=== PATIENT | male | born 1945 | race Hispanic/Latino ===

== ENCOUNTER 2016-07-10 13:10 | Inpatient (IN) | payer MEDICARE, OTHER ==
[2016-07-10] MEDS ORDERED: MILK OF MAGNESIA PO PRN (14:20)
[2016-07-10] MEDS ORDERED: DILAUDID IV PRN (14:20)
[2016-07-10] MEDS ORDERED: ZOFRAN IV PRN (14:20)
[2016-07-10] MEDS ORDERED: TYLENOL PO PRN (14:20)
[2016-07-10] MEDS ORDERED: DULCOLAX PR PRN (14:20)
[2016-07-10] MEDS ORDERED: CARDIZEM/D5W 100MG/100ML 100 MG/100 ML BAG IV SCH (23:00)
[2016-07-10] MEDS: COREG PO SCH (23:03)
[2016-07-10] MEDS: AMBIEN PO PRN (23:04)
[2016-07-10] MEDS: BROVANA NEBU IH SCH (23:11)
[2016-07-11] MEDS ORDERED: SODIUM CHLORIDE FLUSH SYRINGE 10 ML IV PRN (00:02)
--- NOTE | 2016-07-11 00:02 | Event Note ---
Date: 07/10/16 See H/p in reports Transfer from rehab unit SVT - new onset
[2016-07-11] MEDS: PROVENTIL IH PRN (04:39)
[2016-07-11 04:42] LABS: Basophils % (Auto) 0.4 % (0.0-1.8); Eosinophils % (Auto) 0.9 % (0.0-4.3); Hematocrit 31.6 % (35.5-45.6); Hemoglobin 9.6 gm/dl (11.8-15.2); Mean Corpuscular HGB Conc 30 % (32-34); Mean Corpuscular Volume 78 fl (84-94); Platelet Count 288 K/mm3 (140-440); Red Blood Count 4.05 M/mm3 (3.65-5.03)
[2016-07-11 04:43] LABS: Mean Corpuscular Hemoglobin 24 pg (28-32); Red Cell Distribution Width 21.8 % (13.2-15.2)
[2016-07-11 04:55] LABS: Alanine Aminotransferase 10 units/L (7-56); Albumin 2.6 g/dL (3.9-5); Albumin/Globulin Ratio 0.9 %; Alkaline Phosphatase 60 units/L (35-129); Anion Gap 14 mmol/L; BUN/Creatinine Ratio 15.55; Blood Urea Nitrogen 14 mg/dL (9-20); Calcium 8.7 mg/dL (8.4-10.2); Carbon Dioxide 29 mmol/L (22-30); Chloride 106.4 mmol/L (98-107); Glucose 82 mg/dL (75-100); Potassium 4.1 mmol/L (3.6-5.0); Sodium 145 mmol/L (137-145); Total Protein 5.4 g/dL (6.3-8.2)
--- NOTE | 2016-07-11 08:01 | Admit Criteria Form ---
<LINA VILLANUEVA - Last Filed: 07/11/16 08:01> Admission Criteria Documentation: TELEMETRY CARE Telemetry Admission Guidelines (Place 'X' for any and all applicable criteria): Admission to telemetry [A] may be indicated for ANY ONE of the following(1)(2)(3 )(4)(5): [X ]I. Cardiac disease, including ANY ONE of the following (9)(10)(11)(12)( 13): [ ]a) Postacute PA [ ]b) Low-risk patients with ST-segment elevation PA who have undergone successful percutaneous coronary intervention [ ]c) Unstable angina [ ]d) Suspected PA (until it is ruled out) [ ]e) Post cardiac surgery (first 48 to 72 hours unless complications occur) [X ]f) Acute arrhythmias (including significant tachycardia or bradycardia) [B] [ ]g) Firing of an implantable cardioverter defibrillator [C] [ ]h) Suspected pacemaker or implantable cardioverter defibrillator malfunction (10) [ ]i) New administration or adjustment of an antiarrhythmic drug [D ] [ ]j) Child admitted for acute congestive heart failure [ ]j) Long QT syndrome [ ]k) Advanced heart block (eg, second-degree Mobitz type II, third- degree heart block) [ ]l) Acute myocarditis or pericarditis [ ]m) Short-term (ambulatory or inpatient) monitoring after a cardiac procedure as indicated by ANY ONE of the following [E]: [ ]i) Electrophysiologic studies [ ]ii) Percutaneous coronary intervention with stent placement [ ]iii) Pacemaker placement with cardiac conduction defect [ ]iv) Implantable cardiac defibrillator placement [ ]II. Drug overdose or poisoning with substance that causes arrhythmias or QT prolongation (eg, phenothiazines, sympathomimetic agents, cyclic antidepressants, digitalis, antiarrhythmic drugs)(15) [ ]III. Short-term (ambulatory or inpatient) monitoring after therapeutic or diagnostic procedure requiring conscious sedation or anesthesia (eg, endoscopy, elective cardioversion) [ ]IV. Acute cerebrovascular even[F](18) [ ]V. Massive blood transfusion (eg, at least 10 units of packed red blood cells in 24 hours) [ ]. Variceal bleeding after endoscopy, sclerotherapy, or IV vasopressin [ ]VII. Uncorrected electrolyte abnormalities associated with an increased risk of dangerous arrhythmia [G]; examples include [ ]a) Hyperkalemia with attributable ECG changes [ ]b) Potassium greater than 6.5 mmol/L (mEq/L) in a patient without history of chronic renal disease [ ]c) Prolonged QT attributed to hypokalemia, hypomagnesemia, or hypocalcemia [ ]VIII.Unexplained syncope or other neurologic event suspected of being due to arrhythmia due to a finding that increases risk; examples include(19)(20)(21): [ ]a) High-risk ECG findings (eg, bifascicular block, bradycardia, abnormal QT interval, ventricular pre- excitation) [ ]b) History of previous syncope due to arrhythmia [ ]c) Abnormal ventricular function (eg, reduced ejection fraction ) [ ]d) Exertional or supine syncope [ ]e) Concerning syncope characteristics (eg, sudden loss of consciousness without prodrome) [ ]f) Family history of sudden [ ]g) Use of arrhythmogenic medication [ ]h) Suspected cardiac ischemia [ ]i) Known channelopathy (eg, long QT syndrome, Brugada syndrome, or catecholaminergic paroxysmal ventricular tachycardia) [ ]j) Known structural heart disease (eg, hypertrophic cardiomyopathy , severe valvular disease) [ ]k) Palpitations preceding syncope The original [employer] content created by [employer] has been revised. The portions of the content which have been revised are identified through the use of italic text or in bold, and [employer] has neither reviewed nor approved the modified material. All other unmodified content is copyright [employer]. Please see references footnoted in the original [employer] edition 2016 <CYNTHIA MONSON - Last Filed: 07/21/16 06:40> Admission Criteria Met: Yes
--- NOTE | 2016-07-11 08:45 | Progress Note ---
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 Case management Disposition; possible discharge in 1-2 days if stable Plan of care discussed with the patient, his nurse as well as the case management History Interval history: Patient seen and evaluated medical records reviewed No new events reported by the nursing staff Patient denies chest pain or shortness of breath Alert awake oriented 3 not in acute distress Vital signs reviewed Hospitalist Physical - Constitutional Vitals: Temp Pulse Resp BP Pulse Ox 98.8 F 56 L 20 117/71 96 07/11/16 05:52 07/11/16 05:52 07/11/16 05:52 07/11/16 05:52 07/11/16 05:52 General appearance: Present: no acute distress, well-nourished - EENT Eyes: Present: PERRL, EOM intact - Neck Neck: Present: supple, normal ROM - Respiratory Respiratory effort: normal Respiratory: bilateral: diminished, negative: rales, rhonchi, wheezing - Cardiovascular Rhythm: regular Heart Sounds: Present: S1 & S2 - Extremities Extremities: no ischemia, pulses intact, pulses symmetrical - Abdominal General gastrointestinal: soft, non-tender, non-distended, normal bowel sounds - Integumentary Integumentary: Present: clear, warm - Psychiatric Psychiatric: appropriate mood/affect, cooperative - Neurologic Neurologic: CNII-XII intact, moves all extremities Results - Labs CBC & Chem 7: 07/11/16 04:00 07/11/16 04:00 Labs: Laboratory Last Values WBC 12.0 K/mm3 (4.5-11.0) H 07/11/16 04:00 RBC 4.05 M/mm3 (3.65-5.03) 07/11/16 04:00 Hgb 9.6 gm/dl (11.8-15.2) L 07/11/16 04:00 Hct 31.6 % (35.5-45.6) L 07/11/16 04:00 MCV 78 fl (84-94) L D 07/11/16 04:00 MCH 24 pg (28-32) L 07/11/16 04:00 MCHC 30 % (32-34) L 07/11/16 04:00 RDW 21.8 % (13.2-15.2) H 07/11/16 04:00 Plt Count 288 K/mm3 (140-440) 07/11/16 04:00 Lymph % (Auto) 5.5 % (13.4-35.0) L 07/11/16 04:00 [place] % (Auto) 8.2 % (0.0-7.3) H 07/11/16 04:00 Eos % (Auto) 0.9 % (0.0-4.3) 07/11/16 04:00 Baso % (Auto) 0.4 % (0.0-1.8) 07/11/16 04:00 Lymph # 0.7 K/mm3 (1.2-5.4) L 07/11/16 04:00 [place] # 1.0 K/mm3 (0.0-0.8) H 07/11/16 04:00 Eos # 0.1 K/mm3 (0.0-0.4) 07/11/16 04:00 Baso # 0.0 K/mm3 (0.0-0.1) 07/11/16 04:00 Seg Neutrophils % 85.0 % (40.0-70.0) H 07/11/16 04:00 Seg Neutrophils # 10.2 K/mm3 (1.8-7.7) H 07/11/16 04:00 Sodium 145 mmol/L (137-145) 07/11/16 04:00 Potassium 4.1 mmol/L (3.6-5.0) 07/11/16 04:00 Chloride 106.4 mmol/L (98-107) 07/11/16 04:00 Carbon Dioxide 29 mmol/L (22-30) 07/11/16 04:00 Anion Gap 14 mmol/L 07/11/16 04:00 BUN 14 mg/dL (9-20) 07/11/16 04:00 Creatinine 0.9 mg/dL (0.8-1.5) 07/11/16 04:00 Estimated GFR > 60 ml/min 07/11/16 04:00 BUN/Creatinine Ratio 15.55 % 07/11/16 04:00 Glucose 82 mg/dL (75-100) 07/11/16 04:00 Hemoglobin A1c 5.9 % (4-6) 07/10/16 Unknown Calcium 8.7 mg/dL (8.4-10.2) 07/11/16 04:00 Total Bilirubin 0.80 mg/dL (0.1-1.2) 07/11/16 04:00 AST 11 units/L (5-40) 07/11/16 04:00 ALT 10 units/L (7-56) 07/11/16 04:00 Alkaline Phosphatase 60 units/L (35-129) 07/11/16 04:00 Total Creatine Kinase 12 units/L (55-170) L 07/11/16 06:47 CK-MB (CK-2) 1.0 ng/mL (0.0-4.0) 07/11/16 06:47 CK-MB (CK-2) Rel Index 8.3 (0-4) H 07/11/16 06:47 Troponin T 0.038 ng/mL (0.00-0.029) H 07/11/16 04:00 Total Protein 5.4 g/dL (6.3-8.2) L 07/11/16 04:00 Albumin 2.6 g/dL (3.9-5) L 07/11/16 04:00 Albumin/Globulin Ratio 0.9 % 07/11/16 04:00 Triglycerides 75 mg/dL (2-149) 07/11/16 04:00 Cholesterol 90 mg/dL (50-199) 07/11/16 04:00 LDL Cholesterol Direct 25 mg/dL (50-130) L 07/11/16 04:00 HDL Cholesterol 50 mg/dL (40-59) 07/11/16 04:00 Cholesterol/HDL Ratio 1.80 % 07/11/16 04:00
[2016-07-11] MEDS: BROVANA NEBU IH SCH ×2 (08:56→22:02)
[2016-07-11] MEDS: DUONEB 0.5 MG-3 MG/3 ML SOLN IH SCH ×3 (09:17→20:00)
--- NOTE | 2016-07-11 09:47 | History and Physical Report ---
CHIEF COMPLAINT: Palpitations since a.m. HISTORY OF PRESENT ILLNESS: A 71-year-old male with multiple medical problems, transferred from acute rehab for heart rate of 150-160 consistent with supraventricular tachycardia. History before admitted to telemetry, the patient had multiple problems including multiple sclerosis, upper GI bleed and pulmonary embolism. GI bleed was secondary to multiple distal esophageal dilated strictures. The patient was initially admitted for respiratory failure secondary to submassive pulmonary embolism in May 2016. The patient was stabilized and had an IVC filter placement on June 2016, treated for chronic obstructive pulmonary disease exacerbation. The patient was admitted to rehab for severe debility. The patient has been improving as far as debility was concerned, but today because of the palpitations and fast heart rate of 150-170, the patient is being transferred to telemetry for further care. PAST MEDICAL HISTORY: Significant for pulmonary embolism, right leg deep venous thrombosis, chronic obstructive pulmonary disease, dementia, hypertension, hyperlipidemia, asthma and anticoagulation. CURRENT MEDICATIONS: On the chart. PAST SURGICAL HISTORY: IVC filter placement. FAMILY HISTORY: Significant for hypertension. SOCIAL HISTORY: Used to smoke. REVIEW OF SYSTEMS: Significant for palpitations and slight shortness of breath. Otherwise, review of systems is essentially negative. All 14-point review of systems was done. PHYSICAL EXAMINATION: GENERAL: Elderly male, cooperative during examination. VITAL SIGNS: Vital signs were significant for blood pressure of 140/80, heart rate of 150-160, temperature 98.9, pulse is 150, respirations is 19. HEENT: Unremarkable. Pupils equal and reactive. NECK: Supple, no lymphadenopathy, no thyromegaly. LUNGS: Clear to auscultation and percussion. Good air entry. CARDIOVASCULAR: S1, S2 heard. No gallop, no murmur, no rub. Apical impulse in left fifth intercostal space and midclavicular line. ABDOMEN: Soft and benign. No hepatosplenomegaly. No guarding, no rigidity. Hernial orifices are normal. EXTREMITIES: Good pedal pulses, no pedal edema. CENTRAL NERVOUS SYSTEM: Alert and oriented x 4. Nonfocal exam. SKIN: Normal. LABORATORY DATA: White count is 15,300, H and H is 9.6 and 32.6, platelet count is 7000, INR is 2.05. Electrolytes are normal. EKG, supraventricular tachycardia, heart rate of 140-160 per minute. ASSESSMENT AND PLAN: 1. Supraventricular tachycardia. The patient started on Cardizem drip at 5 mg per hour. Also, all medications initiated. The patient also started on Coreg 3.125 b.i.d. The patient may be switched to diltiazem p.o. once heart rate is stabilized. 2. Chronic obstructive pulmonary disease. Continue DuoNebs. 3. Hyperlipidemia. Continue atorvastatin 40 mg p.o. daily. 4. Depression. Continue citalopram 10 mg p.o. daily. 5. Dementia, mild. Continue Aricept 10 mg daily and Namenda XR 28 mg once a day. 6. Anticoagulation, INR therapeutic range, continue Coumadin 6 mg p.o. daily. The patient is being given Coumadin for his pulmonary embolism. The patient has IVC filter. 7. Hypertension. Continue lisinopril 5 mg daily and ____ Coreg 3.125 b.i.d. 8. Deep venous thrombosis prophylaxis. The patient already anticoagulated, no Lovenox at this point. A Cardiology consult with Dr. Barcenas requested. JOB# [id number] VSM/NTS
--- NOTE | 2016-07-11 10:20 | Consultation ---
History of Present Illness Consult date: 07/11/16 Consult reason: other (Atrial flutter) History of present illness: Patient has no complaints. Continues on IV diltiazem. Sinus tachycardia with PVCs on telemetry. Medications and Allergies Allergies Allergy/AdvReac Type Severity Reaction Status Date / Time iodine Allergy Unknown Unknown Verified 06/30/16 23:31 clarithromycin [From Biaxin] Allergy Unknown Verified 06/30/16 23:31 levofloxacin Allergy Unknown Verified 06/30/16 23:31 Home Medications Medication Instructions Recorded Confirmed Last Taken Type ALBUTEROL NEB's [Proventil 0.083% 2.5 mg IH Q4HRT PRN #1 nebu 07/10/16 07/10/16 Unknown Rx NEBS] Arformoterol Nebu [Brovana Nebu] 15 mcg IH Q12HRT ml 07/10/16 07/10/16 Unknown Rx AtorvaSTATin [Lipitor] 40 mg PO QHS tablet 07/10/16 07/10/16 Unknown Rx Carvedilol [Coreg] 3.125 mg PO BID tablet 07/10/16 07/10/16 Unknown Rx Citalopram [celeXA] 10 mg PO QDAY tablet 07/10/16 07/10/16 Unknown Rx Donepezil [Aricept] 10 mg PO QHS tablet 07/10/16 07/10/16 Unknown Rx Ipratropium/Albuterol Sulfate 1 ampul IH TIDRT ampul.neb 07/10/16 07/10/16 Unknown Rx [Duoneb 0.5 mg-3 mg/3 ml Soln] Lisinopril [Zestril TAB] 2.5 mg PO QDAY tablet 07/10/16 07/10/16 Unknown Rx Memantine Xr [Namenda Xr] 28 mg PO QDAY cap 07/10/16 07/10/16 Unknown Rx Montelukast [Singulair] 10 mg PO QHS tablet 07/10/16 07/10/16 Unknown Rx Theophylline Anhydrous ER [Derik-24] 400 mg PO QDAY capsule 07/10/16 07/10/16 Unknown Rx Warfarin Sodium [Coumadin] 6 mg PO QDAY@1700 #1 tablet 07/10/16 07/10/16 Unknown Rx Zolpidem [Ambien] 5 mg PO QHS PRN #1 tablet 07/10/16 07/10/16 Unknown Rx Active Meds: Active Medications Acetaminophen (Tylenol) 650 mg PO Q4H PRN PRN Reason: Pain MILD(1-3)/Fever >100.5/HO Albuterol (Proventil) 2.5 mg IH Q4HRT PRN PRN Reason: Shortness Of Breath Last Admin: 07/11/16 04:39 Dose: 2.5 mg Albuterol/Ipratropium (Duoneb 0.5 Mg-3 Mg/3 Ml Soln) 1 ampul IH TIDRT [facility] Last Admin: 07/11/16 09:17 Dose: Not Given Arformoterol Tartrate (Brovana Nebu) 15 mcg IH Q12HRT [facility] Last Admin: 07/11/16 08:56 Dose: 15 mcg Atorvastatin Calcium (Lipitor) 40 mg PO QHS [facility] Bisacodyl (Dulcolax) 10 mg NE QDAY PRN PRN Reason: Constipation unrelieved by MOM Carvedilol (Coreg) 3.125 mg PO BID [facility] Last Admin: 07/10/16 23:03 Dose: 3.125 mg Citalopram Hydrobromide (Celexa) 10 mg PO QDAY [facility] Donepezil HCl (Aricept) 10 mg PO QHS [facility] Hydromorphone HCl (Dilaudid) 0.5 mg IV Q3H PRN PRN Reason: Pain , Severe (7-10) Diltiazem HCl (Cardizem/D5w 100mg/100ml) 100 mg in 100 mls @ 5 mls/hr IV TITR TERRY; 5 MG/HR PRN Reason: Protocol Last Admin: 07/10/16 23:01 Dose: 5 mg/hr, 5 mls/hr Lisinopril (Zestril) 2.5 mg PO QDAY [facility] Magnesium Hydroxide (Milk Of Magnesia) 30 ml PO Q4H PRN PRN Reason: Constipation Memantine (Namenda Xr) 28 mg PO QDAY TERRY Montelukast Sodium (Singulair) 10 mg PO QHS TERRY Ondansetron HCl (Zofran) 4 mg IV Q8H PRN PRN Reason: N/V unrelieved by Reglan Sodium Chloride (Sodium Chloride Flush Syringe 10 Ml) 10 ml IV PRN PRN PRN Reason: LINE FLUSH Theophylline (Derik-24) 400 mg PO QDAY TERRY Warfarin Sodium (Coumadin) 5 mg PO QDAY@1700 TERRY Warfarin Sodium (Coumadin) 1 mg PO DAILY@1700 TERRY Warfarin Sodium (Coumadin Pharmacy To Dose) 1 each PO PKCONSULT TERRY PRN Reason: Protocol Zolpidem Tartrate (Ambien) 5 mg PO QHS PRN PRN Reason: Sleep Last Admin: 07/10/16 23:04 Dose: 5 mg Physical Examination Vital Signs Pulse 134 H 07/10/16 15:40 General appearance: no acute distress HEENT: Positive: PERRL Cardiac: Positive: Tachycardia Lungs: Positive: Wheezes Results 07/11/16 04:00 07/11/16 04:00 Cardiac Enzymes 07/11/16 07/11/16 07/11/16 Range/Units 04:00 04:00 06:47 AST 11 (5-40) units/L CK-MB (CK-2) 1.0 1.0 (0.0-4.0) ng/mL Lipids 07/11/16 Range/Units 04:00 Triglycerides 75 (2-149) mg/dL Cholesterol 90 (50-199) mg/dL HDL Cholesterol 50 (40-59) mg/dL Cholesterol/HDL Ratio 1.80 % CBC 07/11/16 Range/Units 04:00 WBC 12.0 H (4.5-11.0) K/mm3 RBC 4.05 (3.65-5.03) M/mm3 Hgb 9.6 L (11.8-15.2) gm/dl Hct 31.6 L (35.5-45.6) % Plt Count 288 (140-440) K/mm3 Lymph # 0.7 L (1.2-5.4) K/mm3 [place] # 1.0 H (0.0-0.8) K/mm3 Eos # 0.1 (0.0-0.4) K/mm3 Baso # 0.0 (0.0-0.1) K/mm3 Comprehensive Metabolic Panel 07/11/16 Range/Units 04:00 Sodium 145 (137-145) mmol/L Potassium 4.1 (3.6-5.0) mmol/L Chloride 106.4 (98-107) mmol/L Carbon Dioxide 29 (22-30) mmol/L BUN 14 (9-20) mg/dL Creatinine 0.9 (0.8-1.5) mg/dL Glucose 82 (75-100) mg/dL Calcium 8.7 (8.4-10.2) mg/dL AST 11 (5-40) units/L ALT 10 (7-56) units/L Alkaline Phosphatase 60 (35-129) units/L Total Protein 5.4 L (6.3-8.2) g/dL Albumin 2.6 L (3.9-5) g/dL Assessment and Plan Paroxysmal atrial flutter currently in sinus rhythm on IV diltiazem Hx of coronary artery disease Hx of ischemic cardiomyopathy, EF 35% Hx of DVT and pulmonary embolism status post IVC filter currently on Coumadin therapy Hx of COPD
[2016-07-11] MEDS: NAMENDA XR PO SCH (10:35)
[2016-07-11] MEDS: ZESTRIL PO SCH (10:35)
[2016-07-11] MEDS: COREG PO SCH ×2 (10:35→22:55)
[2016-07-11] MEDS: celeXA PO SCH (10:35)
[2016-07-11 10:36] LABS: INR 2.26 (0.87-1.13)
[2016-07-11] MEDS: THEO-24 PO SCH (10:36)
--- NOTE | 2016-07-11 12:40 | Progress Note ---
Assessment and Plan Paroxysmal atrial flutter currently in sinus rhythm on IV diltiazem Hx of coronary artery disease Hx of ischemic cardiomyopathy, EF 35% Hx of DVT and pulmonary embolism status post IVC filter currently on Coumadin therapy Hx of COPD Plan: We will transition to oral diltiazem for suppression of atrial flutter. Continue medical therapy for his cardiomyopathy and coronary disease. Subjective Date of service: 07/11/16 Interval history: Patient has no complaints. Sinus tachycardia on telemetry. Objective Vital Signs Temp Pulse Pulse Pulse Pulse Resp Resp 07/11/16 09:01 68 18 07/11/16 08:54 07/11/16 08:50 66 20 07/11/16 07:30 98.0 F 66 12 07/11/16 05:52 98.8 F 56 L 20 07/11/16 00:00 98.9 F 111 H 19 07/10/16 23:40 106 H 07/10/16 23:03 108 H 07/10/16 23:01 108 H 07/10/16 20:15 112 H 3 L 07/10/16 20:12 99.2 F 104 H 18 07/10/16 17:36 97.0 F L 118 H 18 07/10/16 15:40 134 H BP BP BP Pulse Ox 07/11/16 09:01 07/11/16 08:54 97 07/11/16 08:50 07/11/16 07:30 130/75 97 07/11/16 05:52 117/71 96 07/11/16 00:00 112/82 95 07/10/16 23:40 07/10/16 23:03 140/80 07/10/16 23:01 140/80 07/10/16 20:15 07/10/16 20:12 141/67 97 07/10/16 17:36 118/73 99 07/10/16 15:40 - Physical Examination General: No Apparent Distress HEENT: Positive: PERRL Neck: Positive: trachea midline Cardiac: Positive: Tachycardia Lungs: Positive: Wheezes - Labs and Meds Cardiac Enzymes 07/11/16 07/11/16 07/11/16 Range/Units 04:00 04:00 06:47 AST 11 (5-40) units/L CK-MB (CK-2) 1.0 1.0 (0.0-4.0) ng/mL Coagulation 07/11/16 Range/Units 10:03 PT 25.0 H (12.2-14.9) Sec. INR 2.26 H (0.87-1.13) Lipids 07/11/16 Range/Units 04:00 Triglycerides 75 (2-149) mg/dL Cholesterol 90 (50-199) mg/dL HDL Cholesterol 50 (40-59) mg/dL Cholesterol/HDL Ratio 1.80 % CBC 07/11/16 Range/Units 04:00 WBC 12.0 H (4.5-11.0) K/mm3 RBC 4.05 (3.65-5.03) M/mm3 Hgb 9.6 L (11.8-15.2) gm/dl Hct 31.6 L (35.5-45.6) % Plt Count 288 (140-440) K/mm3 Lymph # 0.7 L (1.2-5.4) K/mm3 [place] # 1.0 H (0.0-0.8) K/mm3 Eos # 0.1 (0.0-0.4) K/mm3 Baso # 0.0 (0.0-0.1) K/mm3 Comprehensive Metabolic Panel 07/11/16 Range/Units 04:00 Sodium 145 (137-145) mmol/L Potassium 4.1 (3.6-5.0) mmol/L Chloride 106.4 (98-107) mmol/L Carbon Dioxide 29 (22-30) mmol/L BUN 14 (9-20) mg/dL Creatinine 0.9 (0.8-1.5) mg/dL Glucose 82 (75-100) mg/dL Calcium 8.7 (8.4-10.2) mg/dL AST 11 (5-40) units/L ALT 10 (7-56) units/L Alkaline Phosphatase 60 (35-129) units/L Total Protein 5.4 L (6.3-8.2) g/dL Albumin 2.6 L (3.9-5) g/dL
[2016-07-11] MEDS ORDERED: CARDIZEM CD PO ONE ×2 (12:41→16:00)
[2016-07-11] MEDS: COUMADIN PO SCH ×2 (17:44)
[2016-07-11] MEDS: AMBIEN PO PRN (22:54)
[2016-07-11] MEDS: SINGULAIR PO SCH (22:56)
[2016-07-11] MEDS: ARICEPT PO SCH (22:58)
[2016-07-12] MEDS: BROVANA NEBU IH SCH ×2 (08:07→20:56)
[2016-07-12] MEDS: DUONEB 0.5 MG-3 MG/3 ML SOLN IH SCH ×3 (08:08→20:55)
[2016-07-12 08:57] LABS: INR 2.36 (0.87-1.13)
[2016-07-12 09:00] LABS: Anion Gap 16 mmol/L; Blood Urea Nitrogen 13 mg/dL (9-20); Calcium 8.9 mg/dL (8.4-10.2); Carbon Dioxide 29 mmol/L (22-30); Chloride 106.1 mmol/L (98-107); Glucose 74 mg/dL (75-100); Potassium 4.1 mmol/L (3.6-5.0); Sodium 147 mmol/L (137-145)
[2016-07-12] MEDS ORDERED: CARDIZEM CD PO SCH (10:00)
--- NOTE | 2016-07-12 10:17 | Progress Note ---
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 Case management Patient is medically stable for discharge and transfer to acute inpatient rehabilitation unit today Disposition; I discussed the discharge plan. Dr. Rinaldi of rehabilitation, recommend [facility] facility placement Patient has not shown any progression, and the patientwill not return to inpatient rehabilitation unit This consult case management for placement. Possible discharge in 1-2 days if stable Plan of care discussed with the patient his nurse as well as a case management History Interval history: patient seen and evaluated medical records reviewed Patient feels slightly better, no new events reported by the nursing staff Denies chest pain shortness of breath or palpitations Alert awake oriented 3 not in acute distress Vital signs reviewed stable Hospitalist Physical - Constitutional Vitals: Temp Pulse Resp BP Pulse Ox 99.6 F 95 H 18 114/85 99 07/12/16 07:50 07/12/16 08:07 07/12/16 08:07 07/12/16 07:50 07/12/16 08:07 General appearance: Present: no acute distress, well-nourished - EENT Eyes: Present: PERRL, EOM intact - Neck Neck: Present: supple, normal ROM - Respiratory Respiratory effort: normal Respiratory: bilateral: diminished, negative: rales, rhonchi, wheezing - Cardiovascular Rhythm: regular Heart Sounds: Present: S1 & S2 - Extremities Extremities: no ischemia, pulses intact, pulses symmetrical Peripheral Pulses: within normal limits - Abdominal General gastrointestinal: soft, non-tender, non-distended, normal bowel sounds - Integumentary Integumentary: Present: clear, warm - Psychiatric Psychiatric: appropriate mood/affect, cooperative - Neurologic Neurologic: CNII-XII intact, moves all extremities Results - Labs CBC & Chem 7: 07/11/16 04:00 07/12/16 07:31 Labs: Laboratory Last Values WBC 12.0 K/mm3 (4.5-11.0) H 07/11/16 04:00 RBC 4.05 M/mm3 (3.65-5.03) 07/11/16 04:00 Hgb 9.6 gm/dl (11.8-15.2) L 07/11/16 04:00 Hct 31.6 % (35.5-45.6) L 07/11/16 04:00 MCV 78 fl (84-94) L D 07/11/16 04:00 MCH 24 pg (28-32) L 07/11/16 04:00 MCHC 30 % (32-34) L 07/11/16 04:00 RDW 21.8 % (13.2-15.2) H 07/11/16 04:00 Plt Count 288 K/mm3 (140-440) 07/11/16 04:00 Lymph % (Auto) 5.5 % (13.4-35.0) L 07/11/16 04:00 [place]th % (Auto) 8.2 % (0.0-7.3) H 07/11/16 04:00 Eos % (Auto) 0.9 % (0.0-4.3) 07/11/16 04:00 Baso % (Auto) 0.4 % (0.0-1.8) 07/11/16 04:00 Lymph # 0.7 K/mm3 (1.2-5.4) L 07/11/16 04:00 [place] # 1.0 K/mm3 (0.0-0.8) H 07/11/16 04:00 Eos # 0.1 K/mm3 (0.0-0.4) 07/11/16 04:00 Baso # 0.0 K/mm3 (0.0-0.1) 07/11/16 04:00 Seg Neutrophils % 85.0 % (40.0-70.0) H 07/11/16 04:00 Seg Neutrophils # 10.2 K/mm3 (1.8-7.7) H 07/11/16 04:00 PT 25.9 Sec. (12.2-14.9) H 07/12/16 07:31 INR 2.36 (0.87-1.13) H 07/12/16 07:31 Sodium 147 mmol/L (137-145) H 07/12/16 07:31 Potassium 4.1 mmol/L (3.6-5.0) 07/12/16 07:31 Chloride 106.1 mmol/L (98-107) 07/12/16 07:31 Carbon Dioxide 29 mmol/L (22-30) 07/12/16 07:31 Anion Gap 16 mmol/L 07/12/16 07:31 BUN 13 mg/dL (9-20) 07/12/16 07:31 Creatinine 1.0 mg/dL (0.8-1.5) 07/12/16 07:31 Estimated GFR > 60 ml/min 07/12/16 07:31 BUN/Creatinine Ratio 13.00 % 07/12/16 07:31 Glucose 74 mg/dL (75-100) L 07/12/16 07:31 Hemoglobin A1c 5.9 % (4-6) 07/10/16 Unknown Calcium 8.9 mg/dL (8.4-10.2) 07/12/16 07:31 Total Bilirubin 0.80 mg/dL (0.1-1.2) 07/11/16 04:00 AST 11 units/L (5-40) 07/11/16 04:00 ALT 10 units/L (7-56) 07/11/16 04:00 Alkaline Phosphatase 60 units/L (35-129) 07/11/16 04:00 Total Creatine Kinase 12 units/L (55-170) L 07/11/16 06:47 CK-MB (CK-2) 1.0 ng/mL (0.0-4.0) 07/11/16 06:47 CK-MB (CK-2) Rel Index 8.3 (0-4) H 07/11/16 06:47 Troponin T 0.038 ng/mL (0.00-0.029) H 07/11/16 04:00 Total Protein 5.4 g/dL (6.3-8.2) L 07/11/16 04:00 Albumin 2.6 g/dL (3.9-5) L 07/11/16 04:00 Albumin/Globulin Ratio 0.9 % 07/11/16 04:00 Triglycerides 75 mg/dL (2-149) 07/11/16 04:00 Cholesterol 90 mg/dL (50-199) 07/11/16 04:00 LDL Cholesterol Direct 25 mg/dL (50-130) L 07/11/16 04:00 HDL Cholesterol 50 mg/dL (40-59) 07/11/16 04:00 Cholesterol/HDL Ratio 1.80 % 07/11/16 04:00
--- NOTE | 2016-07-12 10:27 | Progress Note ---
Assessment and Plan - Patient Problems (1) Atrial flutter with rapid ventricular response Current Visit: No Status: Acute Plan to address problem: Atrial flutter has resolved, on Cardizem therapy. We will increase oral Cardizem to 180 mg daily, and the patient will also need additional beta peng therapy with metoprolol for persistent sinus tachycardia. The patient is stable cardiac cisneros for a return to his physical rehabilitation program. Subjective Date of service: 07/12/16 Interval history: The patient looks and feels better, on the telemetry he is in the mild sinus tachycardia, heart rate 105/m. His atrial flutter has resolved on Cardizem therapy. Objective Vital Signs Temp Pulse Pulse Pulse Pulse Resp Resp 07/12/16 08:07 95 H 18 07/12/16 07:50 99.6 F 114 H 18 07/12/16 04:10 98.5 F 113 H 18 07/12/16 00:52 98.5 F 115 H 20 07/11/16 22:10 91 H 18 07/11/16 22:00 118 H 07/11/16 21:21 98.7 F 98 H 20 07/11/16 20:20 07/11/16 20:12 92 H 18 07/11/16 20:00 91 H 18 07/11/16 17:43 73 07/11/16 14:52 80 16 07/11/16 14:41 93 H 16 BP BP Pulse Ox 07/12/16 08:07 99 07/12/16 07:50 114/85 98 07/12/16 04:10 151/97 07/12/16 00:52 159/75 93 07/11/16 22:10 96 07/11/16 22:00 07/11/16 21:21 127/81 97 07/11/16 20:20 96 07/11/16 20:12 07/11/16 20:00 07/11/16 17:43 135/87 07/11/16 14:52 07/11/16 14:41 - Physical Examination General: No Apparent Distress HEENT: Positive: PERRL Neck: Positive: trachea midline Cardiac: Positive: Regular Rhythm Lungs: Positive: Decreased Breath Sounds Neuro: Positive: Grossly Intact Abdomen: Positive: Soft Skin: Positive: Clear Extremities: Absent: edema - Labs and Meds Coagulation 07/11/16 07/12/16 Range/Units 10:03 07:31 PT 25.0 H 25.9 H (12.2-14.9) Sec. INR 2.26 H 2.36 H (0.87-1.13) Comprehensive Metabolic Panel 07/12/16 Range/Units 07:31 Sodium 147 H (137-145) mmol/L Potassium 4.1 (3.6-5.0) mmol/L Chloride 106.1 (98-107) mmol/L Carbon Dioxide 29 (22-30) mmol/L BUN 13 (9-20) mg/dL Creatinine 1.0 (0.8-1.5) mg/dL Glucose 74 L (75-100) mg/dL Calcium 8.9 (8.4-10.2) mg/dL
[2016-07-12] MEDS: NAMENDA XR PO SCH (10:37)
[2016-07-12] MEDS: celeXA PO SCH (10:37)
[2016-07-12] MEDS: ZESTRIL PO SCH (10:38)
[2016-07-12] MEDS: THEO-24 PO SCH (10:38)
[2016-07-12] MEDS: LOPRESSOR PO SCH ×3 (10:39→22:39)
[2016-07-12] MEDS: CARDIZEM CD PO SCH (10:39)
[2016-07-12] MEDS: COUMADIN PO SCH ×2 (17:29→17:30)
[2016-07-12] MEDS: SINGULAIR PO SCH (22:38)
[2016-07-12] MEDS: ARICEPT PO SCH (22:38)
[2016-07-13] MEDS: PROVENTIL IH PRN (04:48)
[2016-07-13] MEDS: LOPRESSOR PO SCH ×3 (05:19→22:40)
[2016-07-13] MEDS: DUONEB 0.5 MG-3 MG/3 ML SOLN IH SCH ×3 (07:33→20:10)
[2016-07-13] MEDS: BROVANA NEBU IH SCH ×2 (07:33→20:10)
--- NOTE | 2016-07-13 08:54 | Progress Note ---
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 Case management Patient is medically stable for discharge Disposition; I discussed the discharge plan. with Dr. Rinaldi of rehab unit, patient does not need acute rehabilitation per PT Discussed with case management; placement half-way vs long term facility Medically stable for discharge, discharge when placement is set up Plan of care discussed with the patient his nurse as well as a case management History Interval history: Patient seen and evaluated medical records reviewed No new events reported by the nursing staff Patient is in sinus rhythm, denies chest pain shortness of breath or palpitations Alert awake oriented to 3 Vital signs reviewed, stable Hospitalist Physical - Constitutional Vitals: Temp Pulse Resp BP Pulse Ox 98.3 F 54 L 21 139/83 96 07/13/16 05:00 07/13/16 05:00 07/13/16 05:00 07/13/16 05:00 07/13/16 05:00 General appearance: Present: no acute distress, well-nourished - EENT Eyes: Present: PERRL, EOM intact - Neck Neck: Present: supple, normal ROM - Respiratory Respiratory effort: normal Respiratory: bilateral: diminished, negative: rales, rhonchi, wheezing - Cardiovascular Rhythm: regular Heart Sounds: Present: S1 & S2 - Extremities Extremities: no ischemia, pulses intact, pulses symmetrical Peripheral Pulses: within normal limits - Abdominal General gastrointestinal: soft, non-tender, non-distended, normal bowel sounds - Integumentary Integumentary: Present: clear, warm - Psychiatric Psychiatric: appropriate mood/affect, cooperative - Neurologic Neurologic: CNII-XII intact, moves all extremities Results - Labs CBC & Chem 7: 07/11/16 04:00 07/12/16 07:31 Labs: Laboratory Last Values WBC 12.0 K/mm3 (4.5-11.0) H 07/11/16 04:00 RBC 4.05 M/mm3 (3.65-5.03) 07/11/16 04:00 Hgb 9.6 gm/dl (11.8-15.2) L 07/11/16 04:00 Hct 31.6 % (35.5-45.6) L 07/11/16 04:00 MCV 78 fl (84-94) L D 07/11/16 04:00 MCH 24 pg (28-32) L 07/11/16 04:00 MCHC 30 % (32-34) L 07/11/16 04:00 RDW 21.8 % (13.2-15.2) H 07/11/16 04:00 Plt Count 288 K/mm3 (140-440) 07/11/16 04:00 Lymph % (Auto) 5.5 % (13.4-35.0) L 07/11/16 04:00 [place] % (Auto) 8.2 % (0.0-7.3) H 07/11/16 04:00 Eos % (Auto) 0.9 % (0.0-4.3) 07/11/16 04:00 Baso % (Auto) 0.4 % (0.0-1.8) 07/11/16 04:00 Lymph # 0.7 K/mm3 (1.2-5.4) L 07/11/16 04:00 [place] # 1.0 K/mm3 (0.0-0.8) H 07/11/16 04:00 Eos # 0.1 K/mm3 (0.0-0.4) 07/11/16 04:00 Baso # 0.0 K/mm3 (0.0-0.1) 07/11/16 04:00 Seg Neutrophils % 85.0 % (40.0-70.0) H 07/11/16 04:00 Seg Neutrophils # 10.2 K/mm3 (1.8-7.7) H 07/11/16 04:00 PT 25.9 Sec. (12.2-14.9) H 07/12/16 07:31 INR 2.36 (0.87-1.13) H 07/12/16 07:31 Sodium 147 mmol/L (137-145) H 07/12/16 07:31 Potassium 4.1 mmol/L (3.6-5.0) 07/12/16 07:31 Chloride 106.1 mmol/L (98-107) 07/12/16 07:31 Carbon Dioxide 29 mmol/L (22-30) 07/12/16 07:31 Anion Gap 16 mmol/L 07/12/16 07:31 BUN 13 mg/dL (9-20) 07/12/16 07:31 Creatinine 1.0 mg/dL (0.8-1.5) 07/12/16 07:31 Estimated GFR > 60 ml/min 07/12/16 07:31 BUN/Creatinine Ratio 13.00 % 07/12/16 07:31 Glucose 74 mg/dL (75-100) L 07/12/16 07:31 Hemoglobin A1c 5.9 % (4-6) 07/10/16 Unknown Calcium 8.9 mg/dL (8.4-10.2) 07/12/16 07:31 Total Bilirubin 0.80 mg/dL (0.1-1.2) 07/11/16 04:00 AST 11 units/L (5-40) 07/11/16 04:00 ALT 10 units/L (7-56) 07/11/16 04:00 Alkaline Phosphatase 60 units/L (35-129) 07/11/16 04:00 Total Creatine Kinase 12 units/L (55-170) L 07/11/16 06:47 CK-MB (CK-2) 1.0 ng/mL (0.0-4.0) 07/11/16 06:47 CK-MB (CK-2) Rel Index 8.3 (0-4) H 07/11/16 06:47 Troponin T 0.038 ng/mL (0.00-0.029) H 07/11/16 04:00 Total Protein 5.4 g/dL (6.3-8.2) L 07/11/16 04:00 Albumin 2.6 g/dL (3.9-5) L 07/11/16 04:00 Albumin/Globulin Ratio 0.9 % 07/11/16 04:00 Triglycerides 75 mg/dL (2-149) 07/11/16 04:00 Cholesterol 90 mg/dL (50-199) 07/11/16 04:00 LDL Cholesterol Direct 25 mg/dL (50-130) L 07/11/16 04:00 HDL Cholesterol 50 mg/dL (40-59) 07/11/16 04:00 Cholesterol/HDL Ratio 1.80 % 07/11/16 04:00
--- NOTE | 2016-07-13 09:57 | Progress Note ---
Assessment and Plan - Patient Problems (1) Atrial flutter with rapid ventricular response Current Visit: No Status: Acute Plan to address problem: Atrial flutter has resolved, on Cardizem therapy. We will continue oral Cardizem and metoprolol. The patient is stable cardiac cisneros for a return to his physical rehabilitation program. Subjective Date of service: 07/13/16 Interval history: Patient is comfortable, no new cardiac complaints. On the classified ad clerk, he is in a stable sinus rhythm with occasional PVCs. Objective Vital Signs Temp Pulse Pulse Pulse Pulse Resp Resp 07/13/16 09:35 99.1 F 67 18 07/13/16 07:43 72 18 07/13/16 07:33 69 18 07/13/16 05:00 98.3 F 54 L 21 07/13/16 04:59 64 18 07/13/16 04:49 61 18 07/13/16 02:20 64 18 07/13/16 00:00 97.9 F 64 20 07/12/16 22:00 18 07/12/16 20:57 07/12/16 20:35 59 L 18 07/12/16 20:34 59 L 18 07/12/16 20:25 56 L 16 07/12/16 19:00 98.2 F 60 20 07/12/16 17:00 97.5 F L 70 22 07/12/16 13:18 63 20 07/12/16 13:08 52 L 20 07/12/16 11:55 99.3 F 80 20 07/12/16 10:00 97 H 97 H 20 Resp BP BP Pulse Ox 07/13/16 09:35 125/78 98 07/13/16 07:43 07/13/16 07:33 98 07/13/16 05:00 139/83 96 07/13/16 04:59 07/13/16 04:49 07/13/16 02:20 98 07/13/16 00:00 118/68 95 07/12/16 22:00 07/12/16 20:57 18 07/12/16 20:35 99 07/12/16 20:34 07/12/16 20:25 07/12/16 19:00 102/64 97 07/12/16 17:00 125/74 96 07/12/16 13:18 07/12/16 13:08 07/12/16 11:55 127/77 98 07/12/16 10:00 18 94 - Physical Examination General: No Apparent Distress HEENT: Positive: PERRL Neck: Positive: trachea midline Cardiac: Positive: Reg Rate and Rhythm Lungs: Positive: Decreased Breath Sounds Neuro: Positive: Grossly Intact Abdomen: Positive: Soft Skin: Positive: Clear Extremities: Absent: edema
[2016-07-13] MEDS: THEO-24 PO SCH (10:58)
[2016-07-13] MEDS: NAMENDA XR PO SCH (10:58)
[2016-07-13] MEDS: celeXA PO SCH (10:58)
[2016-07-13] MEDS: ZESTRIL PO SCH (10:59)
[2016-07-13] MEDS: CARDIZEM CD PO SCH (11:00)
[2016-07-13] MEDS: COUMADIN PO SCH ×2 (16:58→16:59)
[2016-07-13] MEDS: AMBIEN PO PRN (22:39)
[2016-07-13] MEDS: SINGULAIR PO SCH (22:40)
[2016-07-13] MEDS: ARICEPT PO SCH (22:40)
[2016-07-14] MEDS: PROVENTIL IH PRN (04:18)
[2016-07-14 06:30] LABS: INR 3.57 (0.87-1.13)
[2016-07-14] MEDS: BROVANA NEBU IH SCH ×2 (07:16→21:17)
[2016-07-14] MEDS: DUONEB 0.5 MG-3 MG/3 ML SOLN IH SCH ×3 (07:17→21:17)
[2016-07-14] MEDS: THEO-24 PO SCH (09:57)
[2016-07-14] MEDS: ZESTRIL PO SCH (09:58)
[2016-07-14] MEDS: NAMENDA XR PO SCH (09:58)
[2016-07-14] MEDS: CARDIZEM CD PO SCH (09:59)
[2016-07-14] MEDS: celeXA PO SCH (09:59)
--- NOTE | 2016-07-14 10:18 | Progress Note ---
Assessment and Plan Paroxysmal atrial flutter -resolved currently in sinus rhythm on diltiazem and metoprolol Hx of coronary artery disease Hx of ischemic cardiomyopathy, EF 35% Hx of DVT and pulmonary embolism status post IVC filter currently on Coumadin therapy Hx of COPD Recommendations: Continue diltiazem and metoprolol for suppression of his paroxysmal atrial flutter. Continue medical therapy for his cardiomyopathy and coronary disease. Stable cardiac cisneros for a return to his physical rehabilitation program. Subjective Date of service: 07/14/16 Interval history: Patient has no complaints. Remains in a sinus rhythm on telemetry. Objective Vital Signs Temp Pulse Pulse Pulse Pulse Resp Resp 07/14/16 09:59 82 07/14/16 09:58 82 07/14/16 07:15 99.6 F 82 12 07/14/16 06:05 98.8 F 73 20 07/14/16 04:30 71 18 07/14/16 04:19 76 18 07/14/16 01:00 99.1 F 68 19 07/13/16 22:40 64 07/13/16 22:00 75 18 07/13/16 21:36 68 18 07/13/16 21:16 07/13/16 20:22 64 18 07/13/16 20:13 07/13/16 20:11 68 18 07/13/16 19:27 71 07/13/16 19:00 98.7 F 64 18 07/13/16 17:29 99.0 F 72 16 07/13/16 16:50 69 18 07/13/16 16:40 76 18 07/13/16 14:13 70 07/13/16 13:03 99.1 F 70 18 07/13/16 11:00 67 07/13/16 10:59 67 Resp BP BP BP Pulse Ox 07/14/16 09:59 124/80 07/14/16 09:58 124/80 07/14/16 07:15 124/82 99 07/14/16 06:05 128/80 95 07/14/16 04:30 07/14/16 04:19 07/14/16 01:00 125/73 91 07/13/16 22:40 115/75 07/13/16 22:00 97 07/13/16 21:36 99 07/13/16 21:16 18 07/13/16 20:22 07/13/16 20:13 99 07/13/16 20:11 07/13/16 19:27 07/13/16 19:00 115/75 97 07/13/16 17:29 115/74 96 07/13/16 16:50 07/13/16 16:40 07/13/16 14:13 111/69 07/13/16 13:03 111/69 97 07/13/16 11:00 125/78 07/13/16 10:59 125/78 - Physical Examination General: No Apparent Distress HEENT: Positive: PERRL Neck: Positive: trachea midline Cardiac: Positive: Reg Rate and Rhythm Neuro: Positive: Grossly Intact Extremities: Absent: edema - Labs and Meds Coagulation 07/14/16 Range/Units 05:01 PT 36.0 H (12.2-14.9) Sec. INR 3.57 H (0.87-1.13)
--- NOTE | 2016-07-14 10:50 | Progress Note ---
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 Case management Patient is medically stable for discharge Disposition; I discussed the discharge plan. with Dr. Rinaldi of rehab unit, patient does not need acute rehabilitation per PT Discussed with case management; placement [facility] Plan of care discussed with the patient his nurse as well as a case management Medically stable for discharge, awaiting placement History Interval history: Patient seen and evaluated medical records reviewed No new complaints Alert awake oriented to 3 Vital signs reviewed, stable Awaiting placement Hospitalist Physical - Constitutional Vitals: Temp Pulse Resp BP Pulse Ox 99.6 F 82 12 124/80 99 07/14/16 07:15 07/14/16 09:59 07/14/16 07:15 07/14/16 09:59 07/14/16 07:15 General appearance: Present: no acute distress, well-nourished - EENT Eyes: Present: PERRL, EOM intact - Neck Neck: Present: supple, normal ROM - Respiratory Respiratory effort: normal Respiratory: negative: rales, rhonchi, wheezing - Cardiovascular Rhythm: regular Heart Sounds: Present: S1 & S2 - Extremities Extremities: no ischemia, pulses intact, pulses symmetrical Peripheral Pulses: within normal limits - Abdominal General gastrointestinal: soft, non-tender, non-distended, normal bowel sounds - Integumentary Integumentary: Present: clear, warm - Psychiatric Psychiatric: appropriate mood/affect, cooperative - Neurologic Neurologic: CNII-XII intact, moves all extremities Results - Labs CBC & Chem 7: 07/11/16 04:00 07/12/16 07:31 Labs: Laboratory Last Values WBC 12.0 K/mm3 (4.5-11.0) H 07/11/16 04:00 RBC 4.05 M/mm3 (3.65-5.03) 07/11/16 04:00 Hgb 9.6 gm/dl (11.8-15.2) L 07/11/16 04:00 Hct 31.6 % (35.5-45.6) L 07/11/16 04:00 MCV 78 fl (84-94) L D 07/11/16 04:00 MCH 24 pg (28-32) L 07/11/16 04:00 MCHC 30 % (32-34) L 07/11/16 04:00 RDW 21.8 % (13.2-15.2) H 07/11/16 04:00 Plt Count 288 K/mm3 (140-440) 07/11/16 04:00 Lymph % (Auto) 5.5 % (13.4-35.0) L 07/11/16 04:00 [place] % (Auto) 8.2 % (0.0-7.3) H 07/11/16 04:00 Eos % (Auto) 0.9 % (0.0-4.3) 07/11/16 04:00 Baso % (Auto) 0.4 % (0.0-1.8) 07/11/16 04:00 Lymph # 0.7 K/mm3 (1.2-5.4) L 07/11/16 04:00 [place] # 1.0 K/mm3 (0.0-0.8) H 07/11/16 04:00 Eos # 0.1 K/mm3 (0.0-0.4) 07/11/16 04:00 Baso # 0.0 K/mm3 (0.0-0.1) 07/11/16 04:00 Seg Neutrophils % 85.0 % (40.0-70.0) H 07/11/16 04:00 Seg Neutrophils # 10.2 K/mm3 (1.8-7.7) H 07/11/16 04:00 PT 36.0 Sec. (12.2-14.9) H 07/14/16 05:01 INR 3.57 (0.87-1.13) H 07/14/16 05:01 Sodium 147 mmol/L (137-145) H 07/12/16 07:31 Potassium 4.1 mmol/L (3.6-5.0) 07/12/16 07:31 Chloride 106.1 mmol/L (98-107) 07/12/16 07:31 Carbon Dioxide 29 mmol/L (22-30) 07/12/16 07:31 Anion Gap 16 mmol/L 07/12/16 07:31 BUN 13 mg/dL (9-20) 07/12/16 07:31 Creatinine 1.0 mg/dL (0.8-1.5) 07/12/16 07:31 Estimated GFR > 60 ml/min 07/12/16 07:31 BUN/Creatinine Ratio 13.00 % 07/12/16 07:31 Glucose 74 mg/dL (75-100) L 07/12/16 07:31 Hemoglobin A1c 5.9 % (4-6) 07/10/16 Unknown Calcium 8.9 mg/dL (8.4-10.2) 07/12/16 07:31 Total Bilirubin 0.80 mg/dL (0.1-1.2) 07/11/16 04:00 AST 11 units/L (5-40) 07/11/16 04:00 ALT 10 units/L (7-56) 07/11/16 04:00 Alkaline Phosphatase 60 units/L (35-129) 07/11/16 04:00 Total Creatine Kinase 12 units/L (55-170) L 07/11/16 06:47 CK-MB (CK-2) 1.0 ng/mL (0.0-4.0) 07/11/16 06:47 CK-MB (CK-2) Rel Index 8.3 (0-4) H 07/11/16 06:47 Troponin T 0.038 ng/mL (0.00-0.029) H 07/11/16 04:00 Total Protein 5.4 g/dL (6.3-8.2) L 07/11/16 04:00 Albumin 2.6 g/dL (3.9-5) L 07/11/16 04:00 Albumin/Globulin Ratio 0.9 % 07/11/16 04:00 Triglycerides 75 mg/dL (2-149) 07/11/16 04:00 Cholesterol 90 mg/dL (50-199) 07/11/16 04:00 LDL Cholesterol Direct 25 mg/dL (50-130) L 07/11/16 04:00 HDL Cholesterol 50 mg/dL (40-59) 07/11/16 04:00 Cholesterol/HDL Ratio 1.80 % 07/11/16 04:00
[2016-07-14] MEDS ORDERED: COUMADIN NO DOSE TODAY PO ONE (17:00)
[2016-07-14] MEDS: LOPRESSOR PO SCH ×3 (17:51→19:58)
[2016-07-14] MEDS: SINGULAIR PO SCH (21:43)
[2016-07-14] MEDS: ARICEPT PO SCH (21:43)
[2016-07-15] MEDS: LOPRESSOR PO SCH ×3 (00:44→15:56)
[2016-07-15 06:16] LABS: INR 3.97 (0.87-1.13)
[2016-07-15] MEDS: BROVANA NEBU IH SCH ×2 (08:38→11:04)
[2016-07-15] MEDS: DUONEB 0.5 MG-3 MG/3 ML SOLN IH SCH ×2 (08:38→15:14)
[2016-07-15 09:44] VITALS: BP 136/86
--- NOTE | 2016-07-15 09:51 | Progress Note ---
Hospitalist Physical - Constitutional Vitals: Temp Pulse Resp BP Pulse Ox 99.4 F 77 18 136/86 98 07/15/16 09:40 07/15/16 09:40 07/15/16 09:40 07/15/16 09:40 07/15/16 09:40 General appearance: Present: no acute distress, well-nourished Results - Labs CBC & Chem 7: 07/11/16 04:00 07/12/16 07:31 Labs: Laboratory Last Values WBC 12.0 K/mm3 (4.5-11.0) H 07/11/16 04:00 RBC 4.05 M/mm3 (3.65-5.03) 07/11/16 04:00 Hgb 9.6 gm/dl (11.8-15.2) L 07/11/16 04:00 Hct 31.6 % (35.5-45.6) L 07/11/16 04:00 MCV 78 fl (84-94) L D 07/11/16 04:00 MCH 24 pg (28-32) L 07/11/16 04:00 MCHC 30 % (32-34) L 07/11/16 04:00 RDW 21.8 % (13.2-15.2) H 07/11/16 04:00 Plt Count 288 K/mm3 (140-440) 07/11/16 04:00 Lymph % (Auto) 5.5 % (13.4-35.0) L 07/11/16 04:00 [place] % (Auto) 8.2 % (0.0-7.3) H 07/11/16 04:00 Eos % (Auto) 0.9 % (0.0-4.3) 07/11/16 04:00 Baso % (Auto) 0.4 % (0.0-1.8) 07/11/16 04:00 Lymph # 0.7 K/mm3 (1.2-5.4) L 07/11/16 04:00 [place] # 1.0 K/mm3 (0.0-0.8) H 07/11/16 04:00 Eos # 0.1 K/mm3 (0.0-0.4) 07/11/16 04:00 Baso # 0.0 K/mm3 (0.0-0.1) 07/11/16 04:00 Seg Neutrophils % 85.0 % (40.0-70.0) H 07/11/16 04:00 Seg Neutrophils # 10.2 K/mm3 (1.8-7.7) H 07/11/16 04:00 PT 39.1 Sec. (12.2-14.9) H 07/15/16 04:50 INR 3.97 (0.87-1.13) H 07/15/16 04:50 Sodium 147 mmol/L (137-145) H 07/12/16 07:31 Potassium 4.1 mmol/L (3.6-5.0) 07/12/16 07:31 Chloride 106.1 mmol/L (98-107) 07/12/16 07:31 Carbon Dioxide 29 mmol/L (22-30) 07/12/16 07:31 Anion Gap 16 mmol/L 07/12/16 07:31 BUN 13 mg/dL (9-20) 07/12/16 07:31 Creatinine 1.0 mg/dL (0.8-1.5) 07/12/16 07:31 Estimated GFR > 60 ml/min 07/12/16 07:31 BUN/Creatinine Ratio 13.00 % 07/12/16 07:31 Glucose 74 mg/dL (75-100) L 07/12/16 07:31 Hemoglobin A1c 5.9 % (4-6) 07/10/16 Unknown Calcium 8.9 mg/dL (8.4-10.2) 07/12/16 07:31 Total Bilirubin 0.80 mg/dL (0.1-1.2) 07/11/16 04:00 AST 11 units/L (5-40) 07/11/16 04:00 ALT 10 units/L (7-56) 07/11/16 04:00 Alkaline Phosphatase 60 units/L (35-129) 07/11/16 04:00 Total Creatine Kinase 12 units/L (55-170) L 07/11/16 06:47 CK-MB (CK-2) 1.0 ng/mL (0.0-4.0) 07/11/16 06:47 CK-MB (CK-2) Rel Index 8.3 (0-4) H 07/11/16 06:47 Troponin T 0.038 ng/mL (0.00-0.029) H 07/11/16 04:00 Total Protein 5.4 g/dL (6.3-8.2) L 07/11/16 04:00 Albumin 2.6 g/dL (3.9-5) L 07/11/16 04:00 Albumin/Globulin Ratio 0.9 % 07/11/16 04:00 Triglycerides 75 mg/dL (2-149) 07/11/16 04:00 Cholesterol 90 mg/dL (50-199) 07/11/16 04:00 LDL Cholesterol Direct 25 mg/dL (50-130) L 07/11/16 04:00 HDL Cholesterol 50 mg/dL (40-59) 07/11/16 04:00 Cholesterol/HDL Ratio 1.80 % 07/11/16 04:00
--- NOTE | 2016-07-15 10:36 | Progress Note ---
Assessment and Plan Atrial flutter -resolved currently in sinus rhythm on diltiazem and metoprolol Hx of coronary artery disease Hx of ischemic cardiomyopathy, EF 35% Hx of DVT and pulmonary embolism status post IVC filter on Coumadin therapy Hx of COPD Recommendations: Continue diltiazem and metoprolol for suppression of his paroxysmal atrial flutter. Continue medical therapy for his cardiomyopathy and coronary disease. Stable cardiac cisneros. Subjective Date of service: 07/15/16 Interval history: Patient has no complaints. Remains in a sinus rhythm on telemetry. Objective Vital Signs Temp Pulse Pulse Pulse Pulse Resp Resp 07/15/16 09:40 99.4 F 77 18 07/15/16 08:54 67 18 07/15/16 08:41 07/15/16 08:39 60 18 07/15/16 05:10 98.9 F 85 18 07/15/16 01:10 99 F 89 18 07/14/16 22:00 89 07/14/16 21:24 71 18 07/14/16 21:23 85 18 07/14/16 21:17 73 20 07/14/16 20:36 100.9 F H 87 20 07/14/16 18:04 70 07/14/16 17:53 55 L 07/14/16 17:51 55 L 07/14/16 14:32 98.2 F 63 07/14/16 13:54 78 18 07/14/16 13:44 77 18 BP BP Pulse Ox 07/15/16 09:40 136/86 98 07/15/16 08:54 07/15/16 08:41 97 07/15/16 08:39 07/15/16 05:10 116/79 94 07/15/16 01:10 122/86 98 07/14/16 22:00 07/14/16 21:24 98 07/14/16 21:23 07/14/16 21:17 95 07/14/16 20:36 122/85 97 07/14/16 18:04 125/76 07/14/16 17:53 98/66 07/14/16 17:51 98/67 07/14/16 14:32 122/68 07/14/16 13:54 07/14/16 13:44 - Physical Examination General: No Apparent Distress HEENT: Positive: PERRL Neck: Positive: trachea midline Cardiac: Positive: Reg Rate and Rhythm Skin: Positive: Clear - Labs and Meds Coagulation 07/15/16 Range/Units 04:50 PT 39.1 H (12.2-14.9) Sec. INR 3.97 H (0.87-1.13)
--- NOTE | 2016-07-15 11:38 | Discharge Summary ---
Providers - Providers Date of Admission: 07/10/16 13:10 Date of discharge: 07/15/16 Attending physician: KANIKA BAIRD 07/10/16 22:29 Consult to Physician [CONS] Routine Consulting Provider: MERCEDES INFANTE Reason For Exam: SVT Place consult to:: Dr. Infante Notified:: Adrianna QUINTERO Was contact made?: Yes If yes, spoke with:: Herminia Graham Time called:: 09:45 07/11/16 Consult to Cardiac Rehabilitation [CONS] Routine Reason For Exam: Phase I 07/11/16 08:52 Physical Therapy Evaluation and Treat [CONS] Routine Comment: Reason For Exam: Debility Primary care physician: JACLYN MICHEL Hospitalization Reason for admission: palpitations Condition: Fair Disposition: DC/[place]-03 [facility] CERT Core Measure Documentation - Palliative Care Palliative Care/ Comfort Measures: Not Applicable - Core Measures Any of the following diagnoses?: none Exam - Constitutional Vitals: Temp Pulse Resp BP Pulse Ox 99.4 F 82 18 136/86 98 07/15/16 09:40 07/15/16 11:15 07/15/16 11:15 07/15/16 09:40 07/15/16 09:40 General appearance: Present: no acute distress, well-nourished - EENT Eyes: Present: PERRL, EOM intact - Neck Neck: Present: supple, normal ROM - Respiratory Respiratory effort: normal Respiratory: bilateral: diminished, negative: rales, rhonchi, wheezing - Cardiovascular Rhythm: regular Heart Sounds: Present: S1 & S2 - Extremities Extremities: no ischemia, pulses intact Peripheral Pulses: within normal limits - Abdominal General gastrointestinal: Present: soft, non-tender, non-distended, normal bowel sounds - Integumentary Integumentary: Present: clear, warm - Musculoskeletal Musculoskeletal: strength equal bilaterally - Psychiatric Psychiatric: appropriate mood/affect, cooperative - Neurologic Neurologic: CNII-XII intact, moves all extremities Plan Activity: advance as tolerated, fall precautions Diet: other (cardiac diet) Special Instructions: physical therapy, occupational therapy Additional Instructions: Check INR daily till it is < 3. Start Coumadin 5 mg daily at bedtime when INR is less than 3. Target INR 2-3. if any bleeding noted, stop Coumadin and contact M.D. INR is more than 3 or less than 2 contact M.D. Follow behavioral health 1 week. monitor for any evidence of bleeding Follow up with: JACLYN MICHEL MD [Primary Care Provider] - 7 Days MERCEDES INFANTE MD [Staff Physician] - 7 Days Prescriptions: Diltiazem Cd [Cardizem CD] 180 mg PO QDAY #30 capsule Metoprolol [Lopressor TAB] 25 mg PO Q12H #60 tablet Warfarin Sodium [Coumadin] 5 mg PO QDAY@1700 #14 tablet
[2016-07-15] MEDS: celeXA PO SCH (11:44)
[2016-07-15] MEDS: THEO-24 PO SCH (11:45)
[2016-07-15] MEDS: NAMENDA XR PO SCH (11:45)
[2016-07-15] MEDS: CARDIZEM CD PO SCH (11:47)
[2016-07-15] MEDS: ZESTRIL PO SCH (11:48)
== END 2016-07-15 16:32 | DRG 308 ==
LOC: 4A 13:10
PROVIDERS: ADMIT Internal Medicine; ATTEND Internal Medicine
DX: I48.0 Paroxysmal atrial fibrillation (principal); I50.23 Acute on chronic systolic (congestive) heart failure; E78.5 Hyperlipidemia, unspecified; F32.9 Major depressive disorder, single episode, unspecified; F03.90 Unspecified dementia, unspecified severity, without behavioral disturbance, psychotic disturbance, mood disturbance, and anxiety; J44.9 Chronic obstructive pulmonary disease, unspecified; I25.5 Ischemic cardiomyopathy; Z86.711 Personal history of pulmonary embolism; Z86.718 Personal history of other venous thrombosis and embolism; Z79.01 Long term (current) use of anticoagulants
CPT/HCPCS: 36415; 80048; 80053; 80061; 82550; 82553; 83036; 84484; 85025; 85610; 93005; 93010; 94640; 94660; 94760; A9270-GY; G8978-GP; G8979-GP